=== PATIENT | female | born 1965 | race Caucasian/White ===

== ENCOUNTER 2016-12-29 16:15 | Inpatient (IN) | payer OTHER ==
--- NOTE | ~2016-12-29 | HP ---
Unit #: [id number] #: [id number] Patient: ORVILLE SOLANO [id number] [facility]. [place], [place] [address] [id number] I MR#: [id number] NAME: ORVILLE SOLANO ROOM: 85199 Age: 51 Sex: F Admission Date: 12/29/2016 : 1965 Attending Physician: Oksana Tylre M.D. Primary Care Physician: Artemio Richardson M.D. HISTORY AND PHYSICAL CHIEF COMPLAINT Shortness of breath. HISTORY OF PRESENT ILLNESS The patient is a 51-year-old female with a past medical history of COPD with continued tobacco abuse, chronic respiratory failure, diabetes, coronary artery disease, GERD, anxiety, chronic pain, Von Willebrand disease, who presented to the emergency department for evaluation of the above. The patient states that she has not been feeling well since December 26, 2016. She states that she has had increasing shortness of breath and an occasionally productive cough. She states that her chest is "sore" in association with costs. She denies any fever or chills. Her appetite has been good. No vomiting or diarrhea. No urinary symptoms. She was started on Bactrim and prednisone by her primary care physician. She has been taking those as prescribed and is not feeling any better. She presented to the emergency department today for evaluation. In the emergency department, initial pulse was 105, respirations 36, oxygen saturation was 94% on 2 L. Chest x-ray shows infiltrate in the left lower lobe. She was given Rocephin and azithromycin in the emergency department. She was being admitted to [facility] for evaluation and further treatment. PAST MEDICAL HISTORY 1. Admission to [facility] in June 2016. She underwent cardiac stent placement (no records). 2. Admission to [facility] March 02 through the 2015 for acute on chronic respiratory failure and COPD exacerbation. 3. COPD, severe. The patient used to see Dr. Obrien as an outpatient but is not seeing anybody currently. 4. Chronic respiratory failure, on 2 L of oxygen per nasal cannula. 5. Diabetes. 6. Coronary artery disease, status post cardiac stent placement, followed by Dr. Franco. 7. Chronic neck and back pain, not in pain management. 8. GERD. 9. Anxiety. 10. Von Willebrand disease. PAST SURGICAL HISTORY 1. Cardiac catheterization. Unit #: [id number] #: [id number] Patient: ORVILLE SOLANO 2. Cardiac stent placement. 3. EGD and colonoscopy. 4. Cholecystectomy. 5. Bilateral tubal ligation. 6. . SOCIAL HISTORY The patient lives with her boyfriend. She continues to smoke a pack of cigarettes daily. She denies alcohol use. She walks with assistance. Her code status is a Full Code. FAMILY HISTORY Notable for COPD. ALLERGIES Guaifenesin. MEDICATIONS Home medications include: 1. Bactrim. 2. Prednisone. 3. Plavix. 4. Effient. 5. Multivitamin. 6. Ranitidine. 7. Theophylline. 8. Meloxicam. 9. [place]-3. 10. Aspirin. 11. Pantoprazole. 12. Montelukast. 13. Cyclobenzaprine. 14. Trazodone. 15. Sea Soft Nasal Mist. 16. Humalog. 17. Levemir. 18. Duo-Nebs. 19. Nitroglycerin. 20. Stool softener. 21. Tylenol. Home medications will need to be reviewed and verified. REVIEW OF SYSTEMS A complete review of systems is negative except as indicated in the HPI. The patient states that her blood sugars have been in the 300 to 400 range. She denies any change in her weight. She does have easy bruising that is not a new problem. DIAGNOSTIC STUDIES CARDIOVASCULAR: EKG shows normal sinus rhythm with rate of 99 beats/minute. IMAGING: Chest x-ray shows left lower lobe infiltrate. LABORATORY: D-dimer is 213. INR is 0.9. Complete blood count notable for white blood cell count of 11.6, MCV is Unit #: [id number] #: [id number] Patient: ORVILLE SOLANO 75.5. Troponin is less than 0.05. BNP is 25. Comprehensive metabolic panel is notable for chloride of 97, glucose is 424, BUN and creatinine 27 and 1 respectively, alkaline phosphatase is 99. PHYSICAL EXAMINATION VITAL SIGNS: Temperature is 97.8, pulse 105, respirations 36, blood pressure 113/59. Oxygen saturation is 94% on 2 L. GENERAL: The patient is a female who is awake and alert, in no acute distress. HEENT: The head is atraumatic. Mucous membranes are moist. NECK: Supple. Trachea is midline. CARDIOVASCULAR: Regular rate and rhythm. LUNGS: Demonstrate inspiratory and expiratory wheezes. Breathing is not labored with conversation. ABDOMEN: Soft, nontender, with bowel sounds present in all four quadrants. EXTREMITIES: Nontender with no pedal edema. NEURO: The patient is awake and alert. She follows commands. PSYCH: Mood and affect are normal. The patient is cooperative. SKIN: Demonstrates scattered contusions in varying levels of healing. ASSESSMENT The patient is a 51-year-old female with: 1. Pneumonia, community-acquired that has failed outpatient treatment with Bactrim. 2. Chronic obstructive pulmonary disease exacerbation. 3. Chronic respiratory failure, on 2 L of oxygen per nasal cannula continuous. 4. Continued tobacco abuse. 5. Uncontrolled diabetes with glucose of 424 on comprehensive metabolic panel. 6. Coronary artery disease, status post cardiac stent placement, followed by Dr. Franco. 7. Gastroesophageal reflux disease. 8. Anxiety. 9. Chronic pain. 10. Von Willebrand disease. PLAN 1. Admit to intermediate level. 2. Healthy heart consistent carb diet. 3. Blood cultures x2. 4. Sputum culture and sensitivity. 5. Procalcitonin level. 6. Supplemental oxygen 2 to 4 L to maintain saturations greater than 92%. 7. Rocephin and azithromycin for community-acquired pneumonia pending further workup. 8. Duo-Nebs q.4 hours while awake and q.2 hours p.r.n. 9. Solu-Medrol 80 mg IV q.12 hours. 10. Mucinex 600 mg p.o. b.i.d. 11. Check theophylline level. 12. Sepsis protocol with stat lactic acid and repeat. 13. Serial cardiac enzymes. 14. Hemoglobin A1c. 15. Low dose sliding scale insulin with Accu-Cheks. 16. Protonix for GI prophylaxis since the patient will be on Solu-Medrol. Unit #: [id number] #: [id number] Patient: ORVILLE SOLANO 17. SCDs for DVT prophylaxis. 18. Repeat labs in the morning. 19. Additional workup and consultants based on above. 20. Regarding code status, the patient is a Full Code. Dictated by Oksana Tylre M.D. FRANNIE/teo TD: 12/30/2016 10:42 JOB #: [id number] HISTORY AND PHYSICAL Page 1 of 1 X Oksana Tyler MD HISTORY AND PHYSICAL
--- NOTE | ~2016-12-29 | DS ---
Unit #: [id number] #: [id number] Patient: ORVILLE DUNAWAY [id number] [address] [id number] I MR#: [id number] NAME: ORVILLE DUNAWAY ROOM: 217 Age: 51 Sex: F Admission Date: 12/29/2016 : 1965 Discharge Date: 01/01/2017 Attending Physician: Mana Frias M.D. Primary Care Physician: Artemio Richardson M.D. DISCHARGE SUMMARY PRINCIPAL DIAGNOSES 1. Left lower lobe community-acquired pneumonia. 2. Acute exacerbation of chronic obstructive pulmonary disease. 3. Chronic hypoxic respiratory failure maintained on two liters of oxygen per nasal cannula continuously. 4. Diabetes mellitus type 2, insulin requiring and uncontrolled with hemoglobin A1C of 11.6. 5. Persistent tobacco abuse. 6. Coronary artery disease. 7. Chronic cervical lumbar pain. 8. Gastroesophageal reflux disease. 9. Von Willebrand disease. 10. Anxiety. 11. Restless leg syndrome. 12. Microcytic anemia with pending iron levels. CONSULTANTS None. PROCEDURE Chest x-ray, on December 29, 2016, with alveolar opacities suggestive of atelectatic change in the left lower lung, questionable infiltrate. CLINICAL HISTORY AND HOSPITAL COURSE Ms. Dunaway is a 51-year-old female with a history of COPD with associated respiratory failure, who presents to the emergency department for shortness of breath. Please refer to H and P for further details. Chest x-ray revealed questionable left lower lobe infiltrate. Upon presentation, the patient's WBC count was elevated at 11.6. She was also found to have a MCV of 75. The patient was subsequently admitted. The patient was placed on empiric broad-spectrum antibiotics in addition to IV steroids and nebulizer treatments. The leukocytosis quickly resolved and, clinically, the patient appeared to be improving. She remained afebrile. She has been transitioned to oral antibiotics. The patient's associated COPD exacerbation also began to improve and she has been now tapered to oral steroids. The patient was previously seen by Pulmonology as an outpatient but this had been several years. She states her symptoms were always better controlled on steroid therapy. I am going to continue her on theophylline nebulizer treatments and add steroids. She will need addition of maintenance inhalers as an outpatient as well and we did discuss tobacco cessation. The patient did have some significant hyperglycemia during hospitalization with sugars as high as Unit #: [id number] #: [id number] Patient: ORVILLE DUNAWAY 400 due to IV steroids. However, hemoglobin A1C is significantly elevated at 11.6. I did discuss dietary changes with the patient and I am going to increase her dose of insulin in addition to scheduling her Humalog. This will need close outpatient evaluation. The patient will be discharged home today with close followup. DISCHARGE CONDITION Stable. DISCHARGE STATUS Discharge to home. DISCHARGE MEDICATIONS 1. DuoNeb nebulizer treatments 3 mL every four hours. 2. Prednisone 10 mg four tablets a day for three days, then three tablets for three days, then two tablets for three days and then one tablet p.o. daily with 15 days given. 3. Tylenol 500 mg p.o. q.6 hours p.r.n. for pain. 4. Trazodone 50 mg at bedtime. 5. [place]-3 1,000 mg two tablets b.i.d. 6. Mirapex 0.5 mg at bedtime. 7. Docusate 250 mg at bedtime p.r.n. for constipation. 8. Omnicef 300 mg p.o. b.i.d. for another three days. 9. Humalog 7 units subcu t.i.d. with meals scheduled with associated sliding scale. 10. Levemir increased to 30 units subcutaneously at bedtime. 11. Ranitidine 150 mg b.i.d. 12. Singulair 10 mg daily. 13. Daily multivitamin. 14. Aspirin 81 mg daily. 15. Mobic 15 mg p.o. daily. 16. Plavix 75 mg daily. 17. Pantoprazole 40 mg daily. 18. Theophylline 300 mg q.12 hours. 19. Flexeril 10 mg at bedtime. 20. Nitroglycerin 0.4 mg sublingual q.5 minutes p.r.n. for chest pain. I will note the patient is also reportedly on Effient in addition to Plavix. I am uncertain if this is accurate and I have instructed her to contact her workers compensation analyst for clarification. DISCHARGE INSTRUCTIONS 1. The patient was instructed to follow a Heart Healthy constant carb diet. 2. She can increase her activity as tolerated. 3. To wear oxygen at two liters per nasal cannula at all time. 4. Continue Accu-Cheks a.c. and h.s. at home. FOLLOWUP The patient will follow up with Dr. Richardson in two weeks. I have discussed outpatient evaluation with Pulmonology per Dr. Richardson and perhaps again addition of something like Symbicort or Advair and patient may require long-term prednisone therapy. Also, need intensive monitoring of sugars given prednisone as well. Time spent on discharge-32 minutes. Unit #: [id number] #: [id number] Patient: ORVILLE DUNAWAY Dictated by... Francesca Francis/kuldip TD: 01/01/2017 09:52 JOB #: [id number] DISCHARGE SUMMARY Page 1 of 1 X Mana Frias MD X DISCHARGE SUMMARY
--- NOTE | ~2016-12-29 | A ---
[facility] Nutrition Therapy DATE: 12/31/16 Patient: ORVILLE SOLANO Physician: JOHN Address: [address] [place] [address] Room/Bed: [address] [place] [address], Zip: [place] [address] Admit Date: 12/29/16 Date of : [birth year] Height: 5 2 Weight: 131 59.6 NUTRITIONAL ASSESSMENT: REASON: Consult RE: diabetic diet education 51 yo female admitted for SOA Anthropometrics: Ht: 5'2" Wt: 59.5 kg (131#) BMI: 24.0 Assessment: RD legal internship provided written and verbal diabetic diet education. Pt reported a weight loss of ~17# of unknown time frame, stating UBW ~148#. Pt reported eating 3 meals/d + snacks the majority of the time but sometimes skips meals d/t poor appetite. Pt stated drinking Glucerna shakes at home on occassion. RD legal internship encouraged small frequent meals and importance of adequate calories/protein. RD legal internship discussed portion sizes of carbohydrate foods and alternative cooking methods of foods. Pt verbalized undestanding, expect moderate compliance with diet when d/c'd. Pt had no diet questions at this time. Recommendations: 1. Encourage compliance with consistent carb diet. 2. Reconsult RD if further diet education is needed/requested. RD will f/u per protocol. Respectfully, Emilie Napoles, Bankruptcy Assistant Yamileth Mendez MS, RD, LD [facility] cc: client file
--- NOTE | ~2016-12-29 | CR72 ---
[facility] A Service of [facility] RADIOLOGY TEXT RESULTS PATIENT: ORVILLE SOLANO LOCATION: C5 [address] : [birth year] UNIT #: [id number] AGE: [address]: Mana Frias MD SEX: F ORDER DR: [id number] [facility] [address] [facility]. [place], [place] [address] [id number] I MR#: [id number] Acc #: [id number] NAME: ORVILLE SOLANO : 1965 SEX: F STUDY DATE/TIME: 12/29/2016 15:23 UNIT: [facility] ROOM: 34549 STUDY DESCRIPTION: CR Chest Single View Portable Attending Physician: Oksana Tyler M.D. Ordering Physician: Cheryl Carvajal M.D. Primary Care Physician: Artemio Richardson M.D. MEDICAL IMAGING REPORT This report is preliminary unless electronic signature is present EXAM Single view of the chest dated 12/29/2016 COMPARISON Single view of the chest dated 08/22/2016 HISTORY Shortness of air since Saturday. Patient has had 2 heart stents. FINDINGS Single view of the chest was obtained. No obvious acute cardiopulmonary disease is seen. Minimal atelectatic changes in the left lung base cannot be excluded. No pleural effusion, pneumothorax is seen. Heart, mediastinum and the rene are stable. IMPRESSION 1. Minimal alveolar opacities suggestive of atelectatic changes/minimal infiltrate is suspected in the left lower lung zone in 2 spots, new. 2. No other significant abnormality. Dictated by... Venessa Pearl M.D. THIS IS AN ELECTRONICALLY VERIFIED REPORT Venessa Pearl M.D. at 12/31/2016 1:40 PM CPR/to TD: 12/30/2016 10:11 JOB #: [id number] [facility] A Service [facility] RADIOLOGY TEXT RESULTS PATIENT: ORVILLE SOLANO LOCATION: [facility] 550 : [birth year] UNIT #: [id number] AGE: [address]: Mana Frias MD SEX: F ORDER DR: MEDICAL IMAGING REPORT Page 1 of 1 COPY
--- NOTE | ~2016-12-29 | EKG ---
PATIENT: ORVILLE SOLANO UNIT #: [id number] Ventricular Rate: 99 BPM Atrial Rate: 99 BPM P-R Interval: 116 ms QRS Duration: 76 ms Q-T Interval: 332 ms QTC Calculation(Bezet): 426 ms P [place]: 90 degrees Calculated R [place]: 76 degrees Calculated T [place]: 66 degrees Diagnosis Line: Normal sinus rhythm Diagnosis Line: Normal ECG Diagnosis Line: When compared with ECG of 19-AUG-2016 01:45, Diagnosis Line: No significant change was found Diagnosis Line: Confirmed by CATHY NICHOLE MD ([id number]) on Diagnosis Line: 01/02/2017 5:39:50 AM INTERPRETING : MADY
[2016-12-29 15:53] LABS: BASOPHIL% 0.3 % (0-2.5); EOSINOPHIL% 0.1 % (0.0-7.0); HEMATOCRIT 39.4 % (35.0-45.0); HEMOGLOBIN 12.3 gm/dL (12.0-16.0); LYMPHOCYTE# 0.5 X10e3 (1.0-3.5); LYMPHOCYTE% 4.3 % (17.0-45.0); MEAN CELL VOLUME 75.5 FL (83-96); MEAN CORPUSCULAR HEMOGLOBIN 23.5 PG (28-34); MEAN CORPUSCULAR HGB CONC 31.1 g/dL (30-36); MEAN PLATELET VOLUME 10.1 FL (6.5-11.5); MONOCYTE# 0.2 X10e3 (0-1.0); MONOCYTE% 1.5 % (3.0-12.0); NEUTROPHIL# 10.9 X10e3 (1.5-7.1); NEUTROPHIL% 93.8 % (40-75); PLATELET COUNT 173 X10e3 (140-420); RED BLOOD COUNT 5.22 X10e (3.90-5.30); RED CELL DISTRIBUTION WIDTH 16.8 % (11.0-15.5); WHITE BLOOD COUNT 11.6 X10e3 (4.0-10.5)
[2016-12-29 15:56] LABS: POC - CKMB 3.6 ng/mL (0.0-7.9); POC - TROPONIN <0.05 ng/mL (<=0.05)
[2016-12-29 15:56] LABS: DIFF IND NO
[2016-12-29 16:06] LABS: INR 0.9; PROTHROMBIN TIME (PATIENT) 9.2 SECONDS (9.6-11.5)
[~2016-12-29 16:15] MED LIST: ACETAMINOPHEN PO; ACETAMINOPHEN650 M3 PO; ALBUTEROL MININEB NEB; ALBUTEROL1.25 MG/3 IH; ALBUTEROL17 GM INH; ALPRAZOLAM PO; AMLODIPINE BESYL5 MG PO; ANEXSIA 7.5/3251 TA1 PO; ATARAX PO; ATROVENT HFA12.9 G1 IH; ATROVENT HFA12.9 G1 INH; AUGMENTIN875 M1 PO; AZITHROMYCIN500 MG PO; BENTYL20 MG PO; CLINDAMYCIN HC300 MG PO; COMBIVENT MININEB INH; DALIRESP500 MCG PO; DESYREL50 MG PO; DEXAMETHASONE1 MG PO; DEXAMETHASONE2 MG PO; DIABETA5 M1 PO; DIFLUCAN PO; DOXYCYCLINE MO100 MG PO; FEROSUL325 ( 651 PO; FERRO-TIME325 MG PO; FERROUS SULFATE PO; FISH OIL500 MG PO; FLEXERIL10 MG PO; FOLIC ACID1 MG PO; GLUCOPHAGE500 M1 PO; GLUCOPHAGE500 MG PO; GLYBURIDE PO; HUMALOG100 U/M1; HUMALOG100 U/ML; HYDROCODON-ACE1 EAC1 PO; HYDROCODON-ACE1 EAC9 PO; HYDROCODONE-APA1 T30 PO; HYDROCODONE-APA1 T54 PO; HYDROXYZINE HCL25 M1 PO; HYDROXYZINE PAM25 M1 PO; HYDROXYZINE PAM25 MG PO; IBUPROFEN400 MG PO; JANUVIA PO; JANUVIA50 MG PO; LEVAQUIN750 M1 PO; LEVAQUIN750 MG PO; LISINOPRIL10 MG PO; LORTAB 7.5-3251 EACH; METFORMIN HCL500 M1 PO; MICRONASE5 M1 PO; MICRONASE5 M2 PO; MIRAPEX PO; MIRAPEX0.25 MG PO; MONTELUKAST SOD10 MG PO; NICOTINE P1 PATCH .1 TD; NICOTINE TRANSD21 MG EXT; NORVASC PO; NOVOLOG100 U/M2 SQ; NOVOLOG100 U/ML SUBQ; OMEGA-31000 M1 PO; OMEPRAZOLE20 M1 PO; OMNICEF300 M1 PO; OXYGEN; PANTOPRAZOLE SO40 MG PO; PHENERGAN25 MG PO; PRAMIPEXOLE DI0.5 MG PO; PRAVACHOL20 MG PO; PREDNISONE PO; PREDNISONE10 MG PO; PREDNISONE10 MG/DOSE PO; PREDNISONE50 MG PO; PRILOSEC PO; PRILOSEC20 M1 PO; PROTONIX PO; RANITIDINE HCL150 M1 PO; ROBAXIN500 MG PO; SINGULAIR PO; SPIRIVA18 MCG INH; SYMBICORT 160/4.6 G1 IH; SYMBICORT 16010.2 GM IH; SYMBICORT INH; THEO-DUR300 MG PO; THEOPHYLLIN PO; THIAMINE HCL100 MG PO; VIBRAMYCIN100 M1 PO; VISTARIL PO; WOMEN'S DAILY1 EACH PO; XANAX0.5 MG PO; ZANTAC150 M1 PO; ZANTAC150 MG PO; ZITHROMAX500 MG PO; ZOVIRAX15 GM TP
[2016-12-29 16:24] LABS: ALBUMIN SERUM 3.5 g/dL (3.5-5.0); ALKALINE PHOSPHATASE 99 U/L (32-92); ALT (SGPT) 19 U/L (10-40); AST (SGOT) 19 U/L (10-42); BILIRUBIN,TOTAL 0.2 mg/dL (0.2-2.0); BLOOD UREA NITROGEN 27 mg/dL (9-23); CALCIUM SERUM 9.1 mg/dL (8.4-10.2); CARBON DIOXIDE 29 mmol/L (22-31); CHLORIDE 97 mmol/L (100-111); GLOM FILT RATE Estimated 66.1 mL/min (>60); GLUCOSE FASTING 424 mg/dL (70-110); POTASSIUM 4.7 mmol/L (3.5-5.1); PROTEIN TOTAL SERUM 6.6 g/dL (6.0-8.3); SODIUM 136 mmol/L (135-145)
[2016-12-29 16:28] LABS: BILIRUBIN, DIRECT <0.1 mg/dL (0.0-0.2); BILIRUBIN,INDIRECT 0.1 mg/dL (0.0-0.9)
[2016-12-29 17:32] LABS: POC - CKMB 2.9 ng/mL (0.0-7.9); POC - TROPONIN <0.05 ng/mL (<=0.05)
[2016-12-29 19:51] LABS: THEOPHYLLINE 3 ug/dL (10-20)
[2016-12-29] MEDS ORDERED: PREDNISONE10 MG PO (20:01)
[2016-12-29] MEDS ORDERED: CLOPIDOGREL75 MG PO (20:02)
[2016-12-29] MEDS ORDERED: EFFIENT10 MG PO (20:02)
[2016-12-29] MEDS ORDERED: MULTI VITAMIN1 EACH PO (20:03)
[2016-12-29] MEDS ORDERED: THEO-DUR200 MG PO (20:03)
[2016-12-29] MEDS ORDERED: ACID CONTROL150 MG PO (20:03)
[2016-12-29] MEDS ORDERED: OMEGA-31000 M1 PO (20:04)
[2016-12-29] MEDS ORDERED: MELOXICAM15 MG PO (20:04)
[2016-12-29] MEDS ORDERED: ASPIRIN81 M2 PO (20:04)
[2016-12-29] MEDS ORDERED: MONTELUKAST SOD10 MG PO (20:05)
[2016-12-29] MEDS ORDERED: PANTOPRAZOLE SO40 MG PO (20:05)
[2016-12-29] MEDS ORDERED: DESYREL50 MG PO (20:08)
[2016-12-29] MEDS ORDERED: FLEXERIL10 MG PO (20:08)
[2016-12-29] MEDS ORDERED: PRAMIPEXOLE DI0.5 MG PO (20:09)
[2016-12-29] MEDS ORDERED: HUMALOG100 UNIT/1 SUBQ (20:09)
[2016-12-29] MEDS ORDERED: MIST (20:09)
[2016-12-29] MEDS ORDERED: LEVEMIR100 UNITS/ SUBQ (20:10)
[2016-12-29] MEDS ORDERED: NITROGLYGERIN0.4 MG SL (20:11)
[2016-12-29] MEDS ORDERED: IPRAT-ALBUT 0.5-3 ML INH (20:11)
[2016-12-29] MEDS ORDERED: STOOL SOFTENER250 MG PO (20:12)
[2016-12-29] MEDS ORDERED: ACETAMINOPHEN PO (20:13)
[2016-12-29 20:17] LABS: PROCALCITONIN <0.05 NG/ML
[2016-12-29 20:31] LABS: CK TOTAL 45 IU/L (26-140)
[2016-12-30 05:39] LABS: BASOPHIL% 0.2 % (0-2.5); HEMATOCRIT 37.4 % (35.0-45.0); HEMOGLOBIN 11.8 gm/dL (12.0-16.0); LYMPHOCYTE# 1.4 X10e3 (1.0-3.5); LYMPHOCYTE% 12.1 % (17.0-45.0); MEAN CELL VOLUME 74.7 FL (83-96); MEAN CORPUSCULAR HEMOGLOBIN 23.6 PG (28-34); MEAN CORPUSCULAR HGB CONC 31.6 g/dL (30-36); MEAN PLATELET VOLUME 9.8 FL (6.5-11.5); MONOCYTE# 0.7 X10e3 (0-1.0); NEUTROPHIL# 9.5 X10e3 (1.5-7.1); NEUTROPHIL% 81.7 % (40-75); PLATELET COUNT 171 X10e3 (140-420); RED CELL DISTRIBUTION WIDTH 16.4 % (11.0-15.5); WHITE BLOOD COUNT 11.7 X10e3 (4.0-10.5)
[2016-12-30 05:50] LABS: DIFF IND NO
[2016-12-30 06:10] LABS: ALBUMIN SERUM 3.3 g/dL (3.5-5.0); BILIRUBIN,TOTAL 0.2 mg/dL (0.2-2.0); BUN/CREATININE RATIO 32.85; CALCIUM SERUM 9.5 mg/dL (8.4-10.2); CREATININE SERUM 0.7 mg/dL (0.6-1.4); GLOM FILT RATE Estimated 101.7 mL/min (>60); POTASSIUM 4.5 mmol/L (3.5-5.1); PROTEIN TOTAL SERUM 6.4 g/dL (6.0-8.3)
[2016-12-30 06:11] LABS: CK TOTAL 37 IU/L (26-140)
[2016-12-31 05:20] LABS: BASOPHIL% 0.1 % (0-2.5); HEMATOCRIT 39.7 % (35.0-45.0); HEMOGLOBIN 12.8 gm/dL (12.0-16.0); LYMPHOCYTE# 0.8 X10e3 (1.0-3.5); LYMPHOCYTE% 7.5 % (17.0-45.0); MEAN CELL VOLUME 74.5 FL (83-96); MEAN CORPUSCULAR HEMOGLOBIN 24.1 PG (28-34); MEAN CORPUSCULAR HGB CONC 32.3 g/dL (30-36); MEAN PLATELET VOLUME 9.8 FL (6.5-11.5); MONOCYTE# 0.1 X10e3 (0-1.0); MONOCYTE% 1.4 % (3.0-12.0); NEUTROPHIL# 9.5 X10e3 (1.5-7.1); PLATELET COUNT 159 X10e3 (140-420); RED BLOOD COUNT 5.34 X10e (3.90-5.30); RED CELL DISTRIBUTION WIDTH 16.8 % (11.0-15.5); WHITE BLOOD COUNT 10.5 X10e3 (4.0-10.5)
[2016-12-31 05:25] LABS: DIFF IND NO
[2016-12-31 06:08] LABS: BUN/CREATININE RATIO 44.28; CALCIUM SERUM 9.4 mg/dL (8.4-10.2); CREATININE SERUM 0.7 mg/dL (0.6-1.4); GLOM FILT RATE Estimated 101.7 mL/min (>60); POTASSIUM 5.1 mmol/L (3.5-5.1)
[2017-01-01] MEDS ORDERED: OMNICEF300 M1 PO (11:02)
== END 2017-01-01 13:30 | disposition home or self-care (01) | DRG 190 ==
LOC: CED 16:15 → CEDOF 18:45 → C5B 12-30 18:27 → C2A 12-31 18:24
PROVIDERS: Emergency Medicine; Family Medicine
DX: J44.1 Chronic obstructive pulmonary disease with (acute) exacerbation (principal); J18.9 Pneumonia, unspecified organism; J96.11 Chronic respiratory failure with hypoxia; D68.0 Von Willebrand disease; E11.65 Type 2 diabetes mellitus with hyperglycemia; F17.210 Nicotine dependence, cigarettes, uncomplicated; D50.9 Iron deficiency anemia, unspecified; I25.10 Atherosclerotic heart disease of native coronary artery without angina pectoris; K21.9 Gastro-esophageal reflux disease without esophagitis; F41.9 Anxiety disorder, unspecified; G89.29 Other chronic pain; Z99.81 Dependence on supplemental oxygen; Z90.49 Acquired absence of other specified parts of digestive tract; Z98.51 Tubal ligation status; Z79.82 Long term (current) use of aspirin; Z79.4 Long term (current) use of insulin; G25.81 Restless legs syndrome
CPT/HCPCS: 71010; 80048; 80053; 80076; 80198; 82308; 82550; 82553; 82947; 83036; 83605; 83880; 84484; 85025; 85379; 85610; 87040; 93005; 94640; 94760; 99285; J0456; J0696; J1815; J2920; J2930

== ENCOUNTER 2017-03-28 08:35 | Observation (INO) | payer OTHER ==
[~2017-03-28] VITALS: Ht 154.9 cm; Wt 63.5 kg
--- NOTE | ~2017-03-28 | CR72 ---
[facility] A Service of [facility] RADIOLOGY TEXT RESULTS PATIENT: ORVILLE SOLANO LOCATION: [facility] : [birth year] UNIT #: [id number] AGE: [address]: Leona Acevedo MD SEX: F ORDER DR: [id number] [facility] [address] [facility]. [place], [place] [address] [id number] MR#: [id number] Acc #: [id number] NAME: ORVILLE SOLANO : 1965 SEX: F STUDY DATE/TIME: 03/28/2017 9:30 UNIT: [facility] ROOM: STUDY DESCRIPTION: CR Chest Single View Portable Attending Physician: Leona Acevedo M.D. Ordering Physician: Ed Doctor [id number] [facility] Primary Care Physician: Artemio Richardson M.D. MEDICAL IMAGING REPORT This report is preliminary unless electronic signature is present EXAM Portable chest INDICATIONS Shortness of breath and cough today. COMPARISON 02/21/2017 FINDINGS There is no airspace consolidation. Stable mild interstitial prominence. Heart size stable. IMPRESSION No acute findings. Stable mild interstitial prominence. Dictated by... Shar Weber M.D. THIS IS AN ELECTRONICALLY VERIFIED REPORT Shar Weber M.D. at 03/28/2017 12:25 PM VTIALIY/jennifer TD: 03/28/2017 10:45 JOB #: [id number] MEDICAL IMAGING REPORT Page 1 of 1 COPY
--- NOTE | ~2017-03-28 | HP ---
Unit #: [id number] #: [id number] Patient: ORVILLE SOLANO [id number] [facility]. [place], [place] [address] [id number] I MR#: [id number] NAME: ORVILLE SOLANO ROOM: [address]31 Age: 52 Sex: F Admission Date: 03/28/2017 : 1965 Attending Physician: Marc Kimball M.D. Primary Care Physician: Artemio Richardson M.D. HISTORY AND PHYSICAL CHIEF COMPLAINT Shortness of breath. HISTORY OF PRESENT ILLNESS The patient is a 52-year-old female who presents to [facility] emergency department with a complaint of shortness of breath. She states that it started yesterday. She states it has been progressive and worse with exertion. It is associated with productive cough but no fever. It is better with oxygen and rest. PAST MEDICAL HISTORY Chronic respiratory failure and COPD. The patient is on two liters of oxygen at home. Diabetes, coronary artery disease, chronic neck and back pain, GERD, anxiety, von Willebrand disease. PAST SURGICAL HISTORY Cardiac cath, cardiac stent, EGD and colonoscopy, cholecystectomy, bilateral tubal ligation, . SOCIAL HISTORY The patient states she does smoke a pack a day, denies alcohol and illicit drug use. FAMILY HISTORY COPD. ALLERGIES Guaifenesin. HOME MEDICATIONS 1. Tylenol 500 mg p.o. daily as needed. 2. Albuterol/ipratropium per nebulizer as needed for shortness of breath. 3. Nitroglycerin 0.4 mg sublingual p.r.n. chest pain q.5 minutes p.r.n. Three dose max. 4. Stool softener 250 mg p.o. q.h.s. p.r.n. 5. Trazodone 50 mg p.o. q.h.s. 6. Pramipexole 0.5 mg p.o. q.h.s. 7. Humalog sliding scale. 8. Levemir 16 units subcu at bedtime. 9. Mobic 15 mg p.o. daily. 10. Fish oil daily. 11. Aspirin 81 mg daily. 12. Protonix 40 mg daily. Unit #: [id number] #: [id number] Patient: ORVILLE SOLANO 13. Singulair 10 mg daily. 14. Flexeril 10 mg p.o. q.h.s. 15. Zantac 300 mg daily. 16. [place] 600 mg daily. 17. Plavix 75 mg daily. 18. Multivitamin daily. REVIEW OF SYSTEMS A 10-point review of systems obtained, negative except as per HPI with the addition of chronic back pain. PHYSICAL EXAMINATION GENERAL APPEARANCE: A 52-year-old female in no acute distress who appears stated age. VITAL SIGNS: Temperature 97.5. Pulse 101. Blood pressure 128/57. HEENT: Pupils equally round. Extraocular movements intact. Mucous membranes dry. NECK: Supple. No JVD, lymphadenopathy. CARDIAC: Regular rate and rhythm. No murmurs, gallops or rubs. LUNGS: Demonstrate coarse upper airway sounds bilaterally but no wheezes, decreased but equal air entry bilaterally. ABDOMEN: Nontender, nondistended. Positive bowel sounds. EXTREMITIES: No clubbing, cyanosis or edema. They are warm and dry. PSYCHIATRIC: Alert and oriented x3. Affect is appropriate. NEUROLOGIC: Cranial nerves II-XII intact grossly. The patient moves all extremities equally and with purpose. SKIN: No rash, bruises or ulcer. MUSCULOSKELETAL: No muscle or joint pain. No muscle or joint swelling. DIAGNOSTIC STUDIES LABORATORY: Glucose 371. Platelets 110, otherwise CBC is normal. IMAGING: Chest x-ray shows no acute findings. ASSESSMENT AND PLAN 1. Acute on chronic hypoxic respiratory failure. I ordered an ABG and on her home dose of oxygen she is currently with a pO2 of 75. I have started the patient on treatment for COPD exacerbation. 2. COPD exacerbation. The patient has been started on DuoNeb and IV steroids. 3. Coronary artery disease. Continue home meds. 4. Hypertension. Continue home meds. 5. Diabetes type 2. I have increased the patient's Levemir and put her on sliding scale insulin. Given her steroid use, she will likely require monitoring of blood sugars prior to a significant increase of her insulin. 6. Prophylaxis. The patient has been started on Lovenox. 1. Dictated by Marc Kimball M.D. CARIDAD/kuldip TD: 03/28/2017 14:06 JOB #: [id number] Unit #: [id number] #: [id number] Patient: ORVILLE SOLANO HISTORY AND PHYSICAL Page 1 of 1 X Marc Kimball MD HISTORY AND PHYSICAL
--- NOTE | ~2017-03-28 | EKG ---
PATIENT: ORVILLE SOLANO UNIT #: [id number] Ventricular Rate: 108 BPM Atrial Rate: 108 BPM P-R Interval: 122 ms QRS Duration: 74 ms Q-T Interval: 336 ms QTC Calculation(Bezet): 450 ms P [place]: 81 degrees Calculated R [place]: 41 degrees Calculated T [place]: 36 degrees Diagnosis Line: Sinus tachycardia Diagnosis Line: Otherwise normal ECG Diagnosis Line: When compared with ECG of 29-DEC-2016 15:26, Diagnosis Line: No significant change was found Diagnosis Line: Confirmed by ALL NOVAK MD ([id number]) on Diagnosis Line: 03/29/2017 9:03:05 AM INTERPRETING MD: KISHORE GILMAN
--- NOTE | ~2017-03-28 | DS ---
Unit #: [id number] #: [id number] Patient: ORVILLE DUNAWAY [id number] [address] [address] [id number] I MR#: [id number] NAME: ORVILLE DUNAWAY. ROOM: 231 Age: 52 Sex: F Admission Date: 03/28/2017 : 1965 Discharge Date: 03/30/2017 Attending Physician: Mana Frias M.D. Primary Care Physician: Artemio Richardson M.D. DISCHARGE SUMMARY PRINCIPAL DIAGNOSES 1. Acute exacerbation of chronic obstructive pulmonary disease. 2. Diabetes mellitus type 2, insulin requiring and uncontrolled, with significant steroid-induced hyperglycemia. 3. Steroid-induced leukocytosis. 4. Chronic hypoxic, hypercapnic respiratory failure maintained on two liters of oxygen per nasal cannula continuously. 5. Anxiety. 6. Von Willebrand disease. 7. Coronary artery disease. 8. Tobaccoism. 9. Musculoskeletal abdominal pain. 10. Restless leg syndrome. CONSULTANTS None. PROCEDURE Chest x-ray on March 28, 2017, without any acute findings. Interstitial prominence and hyperinflation noted. CLINICAL HISTORY AND HOSPITAL COURSE Ms. Dunaway is a 52-year-old female who presented to the emergency department with shortness of breath. In the emergency department, she was found to be significantly wheezy. She was subsequently admitted for COPD exacerbation. The patient was placed on IV steroids, in addition to empiric doxycycline. With treatment, she feels much better. She is still wheezy today primarily due to the fact that she lost her IV site and has not received any steroids. However, she states she has walked down to the gift shop and did not have any dyspnea beyond her baseline. Her oxygen requirements have also remained at baseline. I am going to treat her with a dose of Depo-Medrol this morning and continue an oral tapering dose of steroids as an outpatient beginning tomorrow. Patient had significant hyperglycemia while on steroids with blood sugars running in the 500-600 range. At baseline, her diabetes is very poorly controlled. Last hemoglobin A1c per records in December was 11.6. I believe she is likely noncompliant with diet as well. I am going to increase her insulin doses at home. This should remain permanent, and she can follow up with her primary care provider for improved sugar control. Patient was also complaining of some right flank pain and some suprapubic Unit #: [id number] #: [id number] Patient: ORVILLE DUNAWAY pain. Urinalysis was unremarkable. The pain was primarily there with movement, and I think it is muscular in origin from coughing. Will treated with tramadol just for a very short period. DISCHARGE CONDITION Stable. DISCHARGE STATUS Discharge to home. DISCHARGE MEDICATIONS 1. DuoNeb nebulizer solution 3 mL every 6 hours p.r.n. for shortness of breath. 2. Prednisone 10 mg tablets 4 tablets for 3 days, 3 tablets for 3 days, 2 tablets for 3 days, 1 tablet for 3 days, then discontinue. This is to begin on March 31, 2017. 3. Tramadol 50 mg 1 p.o. q.8 hours p.r.n. for pain, #15. 4. Doxycycline 100 mg p.o. b.i.d. for 5 days. 5. Tylenol 500 mg p.o. daily p.r.n. for pain. 6. Trazodone 50 mg at bedtime. 7. Mirapex 0.5 mg at bedtime. 8. Docusate 200 mg at bedtime p.r.n. for constipation. 9. Humalog 10 units subcutaneous t.i.d. with meals. 10. Levemir 30 units subcutaneously at bedtime. 11. [place]-3, 1000 mg tablets, 2 tablets b.i.d. 12. Zantac 150 mg 2 tablets daily. 13. Singulair 10 mg daily. 14. Daily multivitamin. 15. Aspirin 81 mg daily. 16. Mobic 15 mg daily. 17. Plavix 75 mg daily. 18. Pantoprazole 40 mg daily. 19. Theophylline 600 mg daily. 20. Flexeril 10 mg at bedtime. 21. Nitroglycerin 0.4 mg sublingual q.5 minutes p.r.n. for chest pain. 22. Oxygen at 2 liters per nasal cannula continuously. DISCHARGE INSTRUCTIONS 1. Patient was instructed to follow a heart-healthy, diabetic diet. 2. She will continue Accu-Cheks a.c. and at bedtime at home. 3. She can increase her activity as tolerated. 4. She will wear her oxygen at all times. FOLLOWUP Patient will follow up with her primary care provider, Dr. Richardson, in approximately two weeks. Time spent on discharge today 32 minutes. Dictated by... Mana Frias M.D. HAVEN/ciara TD: 04/02/2017 14:27 JOB #: [id number] Unit #: [id number] #: [id number] Patient: ORVILLE DUNAWAY DISCHARGE SUMMARY Page 1 of 1 X Mana Frias MD X DISCHARGE SUMMARY
[~2017-03-28 08:35] MED LIST changes: +ACID CONTROL150 MG PO; +ASPIRIN81 M2 PO; +CLOPIDOGREL75 MG PO; +EFFIENT10 MG PO; +HUMALOG100 UNIT/1 SUBQ; +IPRAT-ALBUT 0.5-3 ML INH; +LEVEMIR100 UNITS/ SUBQ; +MELOXICAM15 MG PO; +MIST; +MULTI VITAMIN1 EACH PO; +NITROGLYGERIN0.4 MG SL; +STOOL SOFTENER250 MG PO; +THEO-DUR200 MG PO
[2017-03-28 09:36] LABS: BASOPHIL% 0.5 % (0-2.5); EOSINOPHIL# 0.1 X10e3 (0-0.7); EOSINOPHIL% 1.6 % (0.0-7.0); HEMATOCRIT 42.7 % (35.0-45.0); HEMOGLOBIN 13.9 gm/dL (12.0-16.0); LYMPHOCYTE# 1.3 X10e3 (1.0-3.5); LYMPHOCYTE% 16.4 % (17.0-45.0); MEAN CELL VOLUME 79.6 FL (83-96); MEAN CORPUSCULAR HGB CONC 32.7 g/dL (30-36); MEAN PLATELET VOLUME 10.2 FL (6.5-11.5); MONOCYTE# 0.6 X10e3 (0-1.0); MONOCYTE% 6.8 % (3.0-12.0); NEUTROPHIL% 74.7 % (40-75); PLATELET COUNT 110 X10e3 (140-420); RED BLOOD COUNT 5.36 X10e (3.90-5.30); RED CELL DISTRIBUTION WIDTH 15.7 % (11.0-15.5); WHITE BLOOD COUNT 8.1 X10e3 (4.0-10.5)
[2017-03-28 09:39] LABS: DIFF IND NO
[2017-03-28 09:53] LABS: POC - CKMB 2.6 ng/mL (0.0-7.9); POC - TROPONIN <0.05 ng/mL (<=0.05)
[2017-03-28 10:02] LABS: ALBUMIN SERUM 3.7 g/dL (3.5-5.0); BILIRUBIN, DIRECT 0.1 mg/dL (0.0-0.2); BILIRUBIN,INDIRECT 0.6 mg/dL (0.0-0.9); BILIRUBIN,TOTAL 0.7 mg/dL (0.2-2.0); CALCIUM SERUM 8.9 mg/dL (8.4-10.2); CREATININE SERUM 0.6 mg/dL (0.6-1.4); GLOM FILT RATE Estimated 106.3 mL/min (>60); POTASSIUM 3.7 mmol/L (3.5-5.1); PROTEIN TOTAL SERUM 7.1 g/dL (6.0-8.3)
[2017-03-28 11:27] LABS: POC - CKMB 5.1 ng/mL (0.0-7.9); POC - TROPONIN <0.05 ng/mL (<=0.05)
[2017-03-28] MEDS ORDERED: CLOPIDOGREL75 MG PO (12:28)
[2017-03-28] MEDS ORDERED: MULTIVITAMINS1 EAC3 PO (12:28)
[2017-03-28] MEDS ORDERED: ZANTAC150 M1 PO (12:29)
[2017-03-28] MEDS ORDERED: THEO-DUR300 MG PO (12:29)
[2017-03-28] MEDS ORDERED: PANTOPRAZOLE SO40 MG PO (12:30)
[2017-03-28] MEDS ORDERED: ASPIRIN81 M2 PO (12:30)
[2017-03-28] MEDS ORDERED: MOBIC PO (12:30)
[2017-03-28] MEDS ORDERED: FLEXERIL10 MG PO (12:30)
[2017-03-28] MEDS ORDERED: OMEGA 3 1,0001 EACH PO (12:30)
[2017-03-28] MEDS ORDERED: MONTELUKAST SOD10 MG PO (12:30)
[2017-03-28] MEDS ORDERED: DESYREL50 MG PO (12:31)
[2017-03-28] MEDS ORDERED: LEVEMIR FL100 UNIT/1 SUBQ (12:31)
[2017-03-28] MEDS ORDERED: PRAMIPEXOLE DI0.5 MG PO (12:31)
[2017-03-28] MEDS ORDERED: HUMALOG100 UNIT/1 SUBQ (12:31)
[2017-03-28] MEDS ORDERED: STOOL SOFTENER250 MG PO (12:32)
[2017-03-28] MEDS ORDERED: NITROGLYGERIN0.4 MG PO (12:32)
[2017-03-28] MEDS ORDERED: IPRATR-ALBUTEROL3 ML NEB (12:32)
[2017-03-28] MEDS ORDERED: TYLENOL325 M1 PO (12:33)
[2017-03-28 12:55] LABS: ARTERIAL BLD GAS O2 SATURATION 94.4 % (90.0-100.0); ARTERIAL BLOOD GAS CARBOXY HB 1.8 %sat (0.0-9.0); ARTERIAL BLOOD GAS HCO3 30.1 mmol/L; ARTERIAL BLOOD GAS MET HB 0.1 %sat (0.0-2.0); ARTERIAL BLOOD GAS PCO2 48.8 mmHg (35.0-45.0); ARTERIAL BLOOD GAS pH 7.398 (7.350-7.450)
[2017-03-28 12:56] LABS: ARTERIAL BLOOD GAS ALLEN TEST NORMAL; ARTERIAL BLOOD GAS ART SITE RIGHT RADIAL; ARTERIAL BLOOD GAS DELIVERY NASAL CANNULA; ARTERIAL BLOOD GAS PO2 75.3 mmHg (80.0-100); ARTERIAL DRAW? YES
[2017-03-28 14:43] LABS: URINE SOURCE CLEAN CATCH
[2017-03-28 14:47] LABS: URINE APPEARANCE CLEAR; URINE BILIRUBIN NEG (NEG); URINE BLOOD TRACE (NEG); URINE COLOR YELLOW; URINE GLUCOSE >1000 MG/DL (NEG); URINE KETONE 2+ (NEG); URINE LEUKOCYTE ESTERASE NEG (NEG); URINE NITRATE NEG (NEG); URINE PH 5.5 (5-8); URINE PROTEIN 2+ (NEG); URINE SPECIFIC GRAVITY 1.039 (1.003-1.035); URINE UROBILINOGEN 0.2 MG/DL (NEG)
[2017-03-28 14:48] LABS: URINE BACTERIA AUWI NEG (NEGATIVE); URINE SQUAMOUS EPITHELIAL CELL NONE SEEN /[HPF]; UWBCS1 AUWI 0-2 (0-5)
[2017-03-28 14:51] LABS: CULTURE INDICATED? NO
[2017-03-29 04:43] LABS: HEMATOCRIT 40.1 % (35.0-45.0); HEMOGLOBIN 13.2 gm/dL (12.0-16.0); MEAN CELL VOLUME 78.5 FL (83-96); MEAN CORPUSCULAR HEMOGLOBIN 25.9 PG (28-34); MEAN CORPUSCULAR HGB CONC 32.9 g/dL (30-36); MEAN PLATELET VOLUME 10.4 FL (6.5-11.5); RED BLOOD COUNT 5.11 X10e (3.90-5.30); RED CELL DISTRIBUTION WIDTH 15.8 % (11.0-15.5); WHITE BLOOD COUNT 9.6 X10e3 (4.0-10.5)
[2017-03-29 06:55] LABS: BUN/CREATININE RATIO 36.66; CALCIUM SERUM 9.7 mg/dL (8.4-10.2); CREATININE SERUM 0.6 mg/dL (0.6-1.4); GLOM FILT RATE Estimated 106.3 mL/min (>60); POTASSIUM 4.5 mmol/L (3.5-5.1)
[2017-03-29 11:49] LABS: IRON SERUM 34 ug/dL (28-170); TOTAL IRON BINDING CAPACITY 398 ug/dL (269-535); TRANSFERRIN 284 mg/dL (192-382); TRANSFERRIN SATURATION 9 % (20-50)
[2017-03-30 05:47] LABS: HEMOGLOBIN 12.7 gm/dL (12.0-16.0); MEAN CELL VOLUME 79.5 FL (83-96); MEAN CORPUSCULAR HEMOGLOBIN 25.9 PG (28-34); MEAN CORPUSCULAR HGB CONC 32.6 g/dL (30-36); MEAN PLATELET VOLUME 10.4 FL (6.5-11.5); RED BLOOD COUNT 4.91 X10e (3.90-5.30); RED CELL DISTRIBUTION WIDTH 15.6 % (11.0-15.5)
[2017-03-30 05:57] LABS: WHITE BLOOD COUNT 17.6 X10e3 (4.0-10.5)
[2017-03-30 06:03] LABS: BUN/CREATININE RATIO 41.42; CALCIUM SERUM 9.6 mg/dL (8.4-10.2); CREATININE SERUM 0.7 mg/dL (0.6-1.4); MAGNESIUM 2.1 mg/dL (1.6-3.0); POTASSIUM 4.4 mmol/L (3.5-5.1)
[2017-03-30] MEDS ORDERED: DOXYCYCLINE HY100 M3 PO (11:52)
[2017-03-30] MEDS ORDERED: TRAMADOL HCL50 M1 PO (11:52)
[2017-03-30] MEDS ORDERED: PREDNISONE10 M1 PO (11:53)
== END 2017-03-30 14:44 | disposition home or self-care (01) ==
LOC: CED 08:35 → CEDOF 12:16 → C2A 12:16 → CED 12:55 → CEDOF 12:55 → C2A 17:38 → CEDOF 17:38 → C2A 03-29 07:54
PROVIDERS: Emergency Medicine; Internal Medicine
DX: J44.1 Chronic obstructive pulmonary disease with (acute) exacerbation (principal); J96.11 Chronic respiratory failure with hypoxia; Z99.81 Dependence on supplemental oxygen; E11.65 Type 2 diabetes mellitus with hyperglycemia; T38.0X5A Adverse effect of glucocorticoids and synthetic analogues, initial encounter; D72.829 Elevated white blood cell count, unspecified; Z79.4 Long term (current) use of insulin; F41.9 Anxiety disorder, unspecified; D68.0 Von Willebrand disease; I25.10 Atherosclerotic heart disease of native coronary artery without angina pectoris; G25.81 Restless legs syndrome; I10 Essential (primary) hypertension; F17.200 Nicotine dependence, unspecified, uncomplicated; R10.9 Unspecified abdominal pain; K21.9 Gastro-esophageal reflux disease without esophagitis; Z79.899 Other long term (current) drug therapy; Z79.01 Long term (current) use of anticoagulants; Z79.82 Long term (current) use of aspirin; Z83.6 Family history of other diseases of the respiratory system; Z90.49 Acquired absence of other specified parts of digestive tract; Z98.51 Tubal ligation status; Z88.8 Allergy status to other drugs, medicaments and biological substances
CPT/HCPCS: 36415; 36600; 71010; 80048; 80076; 81003; 82553; 82803; 82947; 83540; 83550; 83605; 83735; 83880; 84100; 84484; 85025; 85027; 87040; 93005; 94640; 94760; 96365; 96375; 99285; G0378; J1040; J1650; J1815; J2270; J2405; J2930; J3475

== ENCOUNTER 2017-05-27 13:04 | Inpatient (IN) | payer OTHER ==
[~2017-05-27] VITALS: Ht 167.6 cm; Wt 67.6 kg
--- NOTE | ~2017-05-27 | CR72 ---
[facility] A Service of [facility] & [facility] RADIOLOGY TEXT RESULTS PATIENT: ORVILLE SOLANO LOCATION: [facility] 570-01 : [birth year] UNIT #: [id number] AGE: [address]: Mana Frias MD SEX: F ORDER DR: [id number] [facility] [address] [place], [place] [address] [id number] I MR#: [id number] Acc #: [id number] NAME: ORVILLE SOLANO : 1965 SEX: F STUDY DATE/TIME: 05/28/2017 6:15 UNIT: [facility] ROOM: [facility] STUDY DESCRIPTION: CR Chest Single View Portable Attending Physician: Mana Frias M.D. Ordering Physician: Wong Barreto Primary Care Physician: Artemio Richardson M.D. MEDICAL IMAGING REPORT This report is preliminary unless electronic signature is present EXAM Frontal chest 05/28/2017 INDICATIONS Congestion, shortness of air symptoms for 2 days. Hypertension, diabetes, COPD COMPARISON Frontal chest was performed compared with 05/27/2017 FINDINGS Cardiac silhouette is within normal limits. The vascularity is unremarkable. The lungs are hyperinflated and suggest sequela of underlying emphysema. There is old healed granulomatous disease. No effusion or dense consolidation. Infrahilar opacities bilaterally appear more prominent but primarily appear to be related to the pulmonary vessels rather than faint areas of developing atelectasis or infiltrate. There is no dense consolidation or effusion and no pneumothorax is identified. IMPRESSION 1. Background changes of COPD and old healed granulomatous disease. No dense consolidation, effusion or pneumothorax. 2. Increasing prominence of what appears to be the pulmonary vasculature in the lower lung zones. This may be technical in nature. Faint areas of atelectasis or developing infiltrates felt to be less likely but should be correlated clinically. Dictated by... Efrain Aviles M.D. THIS IS AN ELECTRONICALLY VERIFIED REPORT Efrain Aviles M.D. at 05/28/2017 2:29 PM PAXTON/rena ST[facility]. [facility] A Service of [facility] & [facility] RADIOLOGY TEXT RESULTS PATIENT: ORVILLE SOLANO LOCATION: [facility] 570-01 : [birth year] UNIT #: [id number] AGE: [address]: Mana Frias MD SEX: F ORDER DR: TD: 05/28/2017 12:35 JOB #: [id number] MEDICAL IMAGING REPORT Page 1 of 1 COPY
--- NOTE | ~2017-05-27 | HP ---
Unit #: [id number] #: [id number] Patient: ORVILLE SOLANO [id number] [address] [place], [place] [address] [id number] I MR#: [id number] NAME: ORVILLE SOLANO. ROOM: 03458 Age: 52 Sex: F Admission Date: 05/27/2017 : 1965 Attending Physician: Oksana Tyler M.D. Primary Care Physician: Artemio Richardson M.D. HISTORY AND PHYSICAL CHIEF COMPLAINT Short of air. HISTORY OF PRESENT ILLNESS The patient is a 52-year-old female with a past medical history of COPD, chronic respiratory failure, coronary artery disease, diabetes, anxiety, von Willebrand disease, GERD, who presented to the emergency department for evaluation of the above. The patient states that she has had worsening shortness of breath within the past 24 hours. She states that she has had productive cough. She apparently saw her primary care physician last week. She initially called the primary care physician on May 20, 2017, and was given a prescription for antibiotics and steroids which she took as prescribed. She then saw the primary care physician in the office on May 24, 2017, and was started on Levaquin which she has not yet filled. She also was started on a cough syrup. She states that the symptoms have persisted. In the emergency department, chest x-ray showed nothing acute. Oxygen saturation was 98% on five liters. She was given normal saline 30 mL/kg, as well as vancomycin, tobramycin, and Zosyn. She is being admitted to [facility] for evaluation and further treatment. PAST MEDICAL HISTORY 1. Admission to [facility] March 28-2016, for COPD exacerbation. 2. COPD, severe. The patient sees Dr. Rizvi as an outpatient. 3. Chronic respiratory failure on two liters of oxygen per nasal cannula. 4. Diabetes. 5. Coronary artery disease, status post stent placement, followed by Dr. Franco. 6. Chronic neck and back pain, not in pain management. 7. GERD. 8. Anxiety. 9. Von Willebrand disease. PAST SURGICAL HISTORY 1. Cardiac catheterization. 2. Cardiac stent placement. 3. EGD and colonoscopy. 4. Cholecystectomy. 5. Bilateral tubal ligation. 6. section. Unit #: [id number] #: [id number] Patient: ORVILLE SOLANO SOCIAL HISTORY The patient continues to smoke a pack of cigarettes daily. She denies alcohol use. Her code status is a Full Code. FAMILY HISTORY COPD. ALLERGIES Guaifenesin. HOME MEDICATIONS 1. Atrovent 2 puffs 4 times daily. 2. Prednisone. 3. Symbicort 160/4.5 at 2 puffs inhaled twice daily. 4. Ventolin 2 puffs inhaled q.4 hours p.r.n. 5. Levaquin 500 mg daily. 6. [place]-3 at 2000 mg twice daily. 7. Mirapex 0.5 mg at bedtime. 8. Zantac 150 mg twice daily. 9. Aspirin 81 mg daily. 10. Magnesium 400 mg daily. 11. Theophylline 300 mg q.12 hours. 12. Levemir 30 units at bedtime. 13. Plavix 75 mg daily. 14. Mobic 15 mg daily. 15. Trazodone 50 mg at bedtime. 16. Flexeril 10 mg at bedtime. REVIEW OF SYSTEMS A complete review of systems is negative except as indicated in the HPI. PHYSICAL EXAMINATION VITAL SIGNS: Temperature is 99.8, pulse 98, respirations 22, blood pressure 112/72, oxygen saturation 98% on 5 liters. GENERAL: The patient is a female who is awake, alert, and in no acute distress, eating crackers. HEENT: Head is atraumatic. Mucous membranes are moist. NECK: Supple. Trachea is midline. CARDIOVASCULAR: Regular rate and rhythm. LUNGS: Inspiratory and expiratory wheezes. Breathing is not labored with conversation. ABDOMEN: Soft and nontender with bowel sounds present in all four quadrants. EXTREMITIES: Nontender with no pedal edema. NEUROLOGIC: The patient is awake and alert. She follows commands. PSYCHIATRIC: Mood and affect are normal. Patient is cooperative. SKIN: Skin of examined areas is warm and dry. DIAGNOSTIC STUDIES LABORATORY: Arterial blood gas shows a pH of 7.383, PCO2 of 55.5, and PO2 of 70.1 on 2 liters. Complete blood count is essentially normal. Troponin is less than 0.05. Lactic acid is 2.3. Comprehensive metabolic panel notable for a chloride of 98, glucose 306, alkaline phosphatase is 105. BNP is 32. INR is 0.9. IMAGING: Chest x-ray shows no acute abnormality. CARDIOLOGY: EKG shows normal sinus rhythm with a rate of 98 beats per Unit #: [id number] #: [id number] Patient: ORVILLE SOLANO minute. ASSESSMENT The patient is a 52-year-old female with: 1. Sepsis with initial lactic acid of 2.3. 2. Pneumonia, clinical, that has failed outpatient treatment with unknown antibiotic. The patient was given Levaquin last week but did not get the prescription filled. She did however, take an unknown antibiotic that was called in earlier that week. She received vancomycin, tobramycin, and Zosyn in the emergency department. 3. Chronic obstructive pulmonary disease exacerbation with continued tobacco abuse. 4. Chronic respiratory failure, hypoxic and hypercapnic, on two liters of oxygen per nasal cannula. 5. Coronary artery disease, status post cardiac stent placement, followed by Dr. Franco. 6. Diabetes, uncontrolled, with glucose of 306 in the emergency department. 7. Anxiety. 8. Von Willebrand disease. 9. Gastroesophageal reflux disease. PLAN 1. Admit to intermediate level. 2. Healthy heart, consistent carbohydrate diet. 3. Sepsis protocol. 4. Blood cultures x2. 5. Sputum culture and sensitivity. 6. Supplemental oxygen. 7. Procalcitonin level. 8. Vancomycin IV, tobramycin IV, and Zosyn IV pending further workup. 9. Solu-Medrol 80 mg IV q.12 hours. 10. DuoNebs q.[address] 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 12. Serial cardiac enzymes. 13. Check theophylline. 14. Hemoglobin A1c. 15. Low-dose sliding scale insulin with Accu-Cheks. 16. Repeat labs in the morning. 17. SCDs for DVT prophylaxis. 18. Additional workup and consultants based on above. 19. Regarding code status, the patient is a Full Code. 1. Dictated by Francesca Harley/ciara TD: 05/27/2017 17:57 JOB #: [id number] Unit #: [id number] #: [id number] Patient: ORVILLE SOLANO HISTORY AND PHYSICAL Page 1 of 1 X Oksana Tyler MD HISTORY AND PHYSICAL
--- NOTE | ~2017-05-27 | EKG ---
PATIENT: ORVILLE SOLANO UNIT #: [id number] Ventricular Rate: 98 BPM Atrial Rate: 98 BPM P-R Interval: 118 ms QRS Duration: 70 ms Q-T Interval: 326 ms QTC Calculation(Bezet): 416 ms P Gilbert: 66 degrees Calculated R Gilbert: 40 degrees Calculated T Gilbert: 43 degrees Diagnosis Line: Normal sinus rhythm Diagnosis Line: Normal ECG Diagnosis Line: When compared with ECG of 28-MAR-2017 09:34, Diagnosis Line: No significant change was found Diagnosis Line: Confirmed by ALL NOVAK MD ([id number]) on Diagnosis Line: 05/27/2017 2:27:44 PM INTERPRETING MD: KISHORE GILMAN
--- NOTE | ~2017-05-27 | CO ---
Unit #: [id number] #: [id number] Patient: ORVILLE SOLANO [id number] [address] [place], [place] [address] [id number] I MR#: [id number] NAME: ORVILLE SOLANO ROOM: 222 Age: 52 Sex: F Admission Date: 05/27/2017 : 1965 Attending Physician: Mana Frias M.D. Primary Care Physician: Artemio Richardson M.D. Consultation Date: 05/27/2017 CONSULTATION REPORT HISTORY OF PRESENT ILLNESS This is a 52-year-old lady with a history of COPD, coronary artery disease, diabetes mellitus, anxiety, and GERD, who presents with approximately 24 hours of productive cough. The patient took antibiotics last week for worsening shortness of breath, she wa on clindamycin or Adriamycin, the patient was unsure. However, in the past 24 hours, shortness of breath has become significantly more progressive. Procalcitonin is 0.05. The patient has a history of chest pain. She has been stented. She is followed by Dr. Franco, and this appears to have been stable. In the emergency department, the patient showed no acute infiltrate. The patient was saturating 98% on 5 L. The patient was given normal saline as well as vancomycin, tobramycin, and Zosyn, being admitted for possible SIRS, hospital evaluation, and further treatment. PAST MEDICAL HISTORY Significant for previous admission from 03/28/2017 to 03/30/2017 for COPD exacerbation, history of severe COPD. The patient sees Dr. Rizvi as an outpatient, chronic respiratory failure on 2 L oxygen per nasal cannula, history of diabetes, history of coronary artery disease, status post stents, chronic GERD, chronic neck and back pain, chronic anxiety, history of von Willebrand disease. PAST SURGICAL HISTORY Significant for , bilateral tubal ligation, cholecystectomy, EGD, colonoscopy, cardiac stent placement, cardiac catheterization. SOCIAL HISTORY The patient continues to smoke a pack of cigarettes a day. Denies alcohol use. She is full code. FAMILY HISTORY Positive for COPD. ALLERGIES The patient is allergic to Mucinex. HOME MEDICATIONS Include Atrovent 2 puffs q.i.d., Prednisone, Symbicort 160/4.5 two puffs inhaled b.i.d., Ventolin 2 puffs inhaled q.4 hours p.r.n., Levaquin 500 mg daily, omega-3 of 2000 mg b.i.d., Mirapex 0.5 mg at bedtime, Zantac 150 mg daily, aspirin 81 mg daily, magnesium 400 mg daily, theophylline 300 mg q.12 hours, Levemir 30 units at bedtime, Plavix 75 mg daily, Mobic 15 mg daily, trazodone 50 mg at bedtime, Flexeril 10 mg at bedtime. Unit #: [id number] #: [id number] Patient: ORVILLE SOLANO REVIEW OF SYSTEMS Negative except as per noted in the history of present illness. PHYSICAL EXAMINATION GENERAL: The patient is awake, alert, no acute distress. VITAL SIGNS: Temperature 99.8, pulse 98, respiratory rate 22, blood pressure 112/72, oxygen saturation is 98% on 5 L nasal cannula. HEENT: Pupils are equal, round, and reactive to light. Head is normocephalic, atraumatic. NECK: Supple, trachea is midline. CARDIOVASCULAR: Regular rate and rhythm. LUNGS: Show inspiratory and expiratory wheezes. The patient is not labored. ABDOMEN: Soft, nontender, and nondistended. Bowel sounds present in all 4 quadrants. EXTREMITIES: Show no significant edema. There is no cyanosis and no clubbing. SKIN: The patient shows no rashes present. DIAGNOSTIC STUDIES LABORATORY RESULTS: Blood gas 7.383, pCO2 of 55.5, pO2 of 70.1. Lactic acid is 2.3. Comprehensive metabolic panel significant for alkaline phosphate of 105, BNP is 32, INR 0.9. IMAGING STUDIES: Chest x-ray is normal. EKG shows normal sinus rhythm, 98 beats per minute. ASSESSMENT AND PLAN 1. Probable healthcare acquired pneumonia/bronchitis. The patient is on vancomycin, tobramycin, Zosyn. Continue treatment with broad-spectrum antibiotics for approximately 3 days. 2. Acute on chronic respiratory failure. This is probably due to a combination of acute bronchitis and chronic obstructive pulmonary disease. The patient is on nebs, supplementary oxygen. 3. Diabetes mellitus, poorly controlled. We are going to do a short burst of steroids and wean them down as quickly as possible. We are going to await sputum cultures. The patient hopefully will be able to produce expectorate, if not, we can do 3% saline to help with expectoration. Thank you very much for consulting and allowing us to participate in the care of this patient. Please page me at [phone] if you have any questions. Dictated by... Francesca Alvarado/jesusita TD: 05/29/2017 02:33 JOB #: [id number] Unit #: [id number] #: [id number] Patient: ORVILLE SOLANO CONSULTATION REPORT Page 1 of 1 X Wong Barreto MD CONSULTATION REPORT
--- NOTE | ~2017-05-27 | CR72 ---
[facility] A Service of [facility] & [facility] RADIOLOGY TEXT RESULTS PATIENT: ORVILLE SOLANO LOCATION: [facility] 570-01 : [birth year] UNIT #: [id number] AGE: [address]: Mana Frias MD SEX: F ORDER DR: [id number] [facility] [address] [facility] [place], [place] [address] [id number] I MR#: [id number] Acc #: [id number] NAME: ORVILLE SOLANO : 1965 SEX: F STUDY DATE/TIME: 05/27/2017 13:28 UNIT: [facility] ROOM: [facility] STUDY DESCRIPTION: CR Chest Single View Portable Attending Physician: Mana Frias M.D. Ordering Physician: Leona Acevedo M.D. Primary Care Physician: Artemio Richardson M.D. MEDICAL IMAGING REPORT This report is preliminary unless electronic signature is present EXAM Portable chest x-ray 05/27/2017 HISTORY Short of air today. FINDINGS AP radiograph of the chest is presented. There is no acute-appearing bony abnormality. The heart is normal in size. There is evidence of prior coronary artery stenting. The lungs are slightly hyperinflated. No change from prior study. Correlate with any known underlying chronic airway disease. There is no evidence of acute pulmonary disease. No pleural effusion or pneumothorax and no suspicious nodule. Dictated by... Chuck Mitchell M.D. THIS IS AN ELECTRONICALLY VERIFIED REPORT Chuck Mitchell M.D. at 05/28/2017 4:57 PM SARA/aroldo TD: 05/28/2017 09:16 JOB #: [id number] MEDICAL IMAGING REPORT Page 1 of 1 COPY
--- NOTE | ~2017-05-27 | DS ---
Unit #: [id number] #: [id number] Patient: ORVILLE DUNAWAY [id number] [address] [address] [id number] MR#: [id number] NAME: ORVILLE DUNAWAY ROOM: 222 Age: 52 Sex: F Admission Date: 05/27/2017 : 1965 Discharge Date: 05/30/2017 Attending Physician: Mana Frias M.D. Primary Care Physician: Artemio Richardson M.D. DISCHARGE SUMMARY PRINCIPAL DIAGNOSES 1. Acute on chronic hypercapnic, hypoxic respiratory failure, now returned to baseline two to three liters of oxygen per nasal cannula continuously. 2. Acute exacerbation of chronic obstructive pulmonary disease. 3. Acute bronchitis. 4. Diabetes mellitus type 2, insulin requiring and uncontrolled with hemoglobin A1c of 10.2. 5. Steroid-induced leukocytosis. 6. Steroid-induced hyperglycemia. 7. Coronary artery disease. 8. Von Willebrand disease. 9. Anxiety. 10. Tobaccoism. 11. Mild protein malnutrition. 12. Overweight. 13. Gastroesophageal reflux disease. 14. Chronic neck and back pain. [employer] Dr. Barreto, Pulmonology. PROCEDURES 1. Chest x-ray on May 27, 2017, with hyperinflation of the lungs and no other acute findings. 2. Chest x-ray on May 28, 2017, again, with healed granulomatous disease and pulmonary hyperinflation. CLINICAL HISTORY AND HOSPITAL COURSE Ms. Dunaway is a nice 52-year-old female with a history of chronic respiratory failure and severe COPD who presented to the emergency department with shortness of air. Patient received treatment on an outpatient basis but continued to have worsening cough and shortness of breath. She was mildly hypoxic in the emergency department. Patient was given broad spectrum antibiotics given recent hospitalization in March, in addition to failure of outpatient treatment, and was subsequently admitted. Patient again was placed on IV antibiotics but remained afebrile and had only essentially steroid-induced leukocytosis. Procalcitonin was completely normal, and antibiotics were rapidly deescalated. Sputum of note was ultimately normal gianfranco. Patient had an associated COPD exacerbation and was placed on IV steroids. Fortunately, she improved rather quickly, and these have been deescalated. Unit #: [id number] #: [id number] Patient: ORVILLE DUNAWAY Oxygen saturations returned to her baseline the morning following admission and have remained normal. She is having minimal dyspnea upon exertion. Will provide a tapering dose of steroids on an outpatient basis as noted. The patient did have some significant hyperglycemia particularly with steroid dosing. Sugar has been going to the high 200s to 300s. There was an occasional 400. Her sugars at baseline are poorly controlled with her A1c of 10.2. 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 Patient's other chronic issues have remained stable, and she will be discharged home later today. DISCHARGE CONDITION Stable. DISCHARGE STATUS Discharge to home. DISCHARGE MEDICATIONS 1. Ventolin inhaler 2 puffs every 4 hours p.r.n. for shortness of breath. 2. Combivent nebulizer treatments 3 mL every 6 hours p.r.n. for shortness of air. 3. Symbicort 160/4.5 mcg 2 puffs b.i.d. 4. Atrovent 2 puffs 4 times daily. 5. Prednisone 10 mg tablets, 4 tablets p.o. twice daily for 1 day, 6 tablets daily for 1 day, 5 tablets daily for 1 day, 4 tablets daily for 1 day, 3 tablets daily for 1 day, 2 tablets daily for 1 day, 1 tablet daily for 1 day. 6. Magnesium oxide 400 mg p.o. daily. 7. Trazodone 50 mg at bedtime. 8. Mirapex 0.5 mg at bedtime. 9. Colace 100 mg p.o. daily p.r.n. for constipation. 10. Humalog 10 units subcutaneous t.i.d. with meals. 11. Levemir 30 units subcutaneously b.i.d. 12. Fish oil 2000 mg twice daily. 13. Zantac 150 mg b.i.d. 14. Singulair 10 mg daily. 15. Daily multivitamin. 16. Aspirin 81 mg daily. 17. Mobic 15 mg daily. 18. Plavix 75 mg daily. 19. Theophylline 300 mg b.i.d. 20. Flexeril 10 mg at bedtime. 21. Doxycycline 100 mg twice daily for 4 days. 22. Vitamin D2 at 50,000 units weekly. DISCHARGE INSTRUCTIONS 1. Patient is instructed to follow a constant carbohydrate, heart-health diet. 2. She is to continue Accu-Cheks a.c. and at bedtime at home. 3. She can increase her activity as tolerated. 4. She is to wear her oxygen at all times at two liters. 5. She is to refrain from any further tobacco use. FOLLOWUP Patient will follow up with Dr. Barreto and/or Dr. Rizvi in four Unit #: [id number] #: [id number] Patient: XIOMARAORVILLELUDA fiore. She can follow up with her primary care provider, Dr. Richardson, at that time as well. Dictated by... Mana Frias M.D. HAVEN/ciara TD: 06/02/2017 17:35 JOB #: [id number] DISCHARGE SUMMARY Page 1 of 1 X Mana Frias MD X DISCHARGE SUMMARY
[~2017-05-27 13:04] MED LIST changes: +DOXYCYCLINE HY100 M3 PO; +IPRATR-ALBUTEROL3 ML NEB; +LEVEMIR FL100 UNIT/1 SUBQ; +MOBIC PO; +MULTIVITAMINS1 EAC3 PO; +NITROGLYGERIN0.4 MG PO; +OMEGA 3 1,0001 EACH PO; +PREDNISONE10 M1 PO; +TRAMADOL HCL50 M1 PO; +TYLENOL325 M1 PO
[2017-05-27 13:25] LABS: ARTERIAL BLD GAS O2 SATURATION 89.8 % (90.0-100.0); ARTERIAL BLOOD GAS CARBOXY HB 3.3 %sat (0.0-9.0); ARTERIAL BLOOD GAS MET HB 0.6 %sat (0.0-2.0); ARTERIAL BLOOD GAS pH 7.383 (7.350-7.450)
[2017-05-27 13:26] LABS: ARTERIAL BLOOD GAS ALLEN TEST NORMAL; ARTERIAL BLOOD GAS ART SITE RIGHT RADIAL; ARTERIAL BLOOD GAS DELIVERY NASAL CANNULA; ARTERIAL BLOOD GAS PCO2 55.5 mmHg (35.0-45.0); ARTERIAL BLOOD GAS PO2 70.1 mmHg (80.0-100); ARTERIAL DRAW? YES
[2017-05-27 13:56] LABS: BASOPHIL% 0.3 % (0-2.5); EOSINOPHIL# 0.1 X10e3 (0-0.7); EOSINOPHIL% 1.5 % (0.0-7.0); HEMATOCRIT 39.9 % (35.0-45.0); HEMOGLOBIN 13.2 gm/dL (12.0-16.0); LYMPHOCYTE# 1.4 X10e3 (1.0-3.5); LYMPHOCYTE% 16.4 % (17.0-45.0); MEAN CELL VOLUME 81.1 FL (83-96); MEAN CORPUSCULAR HEMOGLOBIN 26.8 PG (28-34); MEAN CORPUSCULAR HGB CONC 33.1 g/dL (30-36); MONOCYTE# 0.5 X10e3 (0-1.0); MONOCYTE% 6.1 % (3.0-12.0); NEUTROPHIL# 6.5 X10e3 (1.5-7.1); NEUTROPHIL% 75.7 % (40-75); PLATELET COUNT 145 X10e3 (140-420); RED BLOOD COUNT 4.92 X10e (3.90-5.30); WHITE BLOOD COUNT 8.6 X10e3 (4.0-10.5)
[2017-05-27 13:59] LABS: DIFF IND NO
[2017-05-27 14:08] LABS: POC - CKMB 1.4 ng/mL (0.0-7.9); POC - TROPONIN <0.05 ng/mL (<=0.05)
[2017-05-27 14:19] LABS: ALBUMIN SERUM 3.5 g/dL (3.5-5.0); BILIRUBIN, DIRECT 0.1 mg/dL (0.0-0.2); BILIRUBIN,INDIRECT 0.3 mg/dL (0.0-0.9); BILIRUBIN,TOTAL 0.4 mg/dL (0.2-2.0); BUN/CREATININE RATIO 16.66; CALCIUM SERUM 8.4 mg/dL (8.4-10.2); CREATININE SERUM 0.6 mg/dL (0.6-1.4); GLOM FILT RATE Estimated 106.3 mL/min (>60); POTASSIUM 3.9 mmol/L (3.5-5.1); PROTEIN TOTAL SERUM 6.3 g/dL (6.0-8.3)
[2017-05-27 15:04] LABS: INR 0.9; PROTHROMBIN TIME (PATIENT) 9.8 SECONDS (10.0-11.7)
[2017-05-27] MEDS ORDERED: ATROVENT HFA12.9 G1 INH (15:35)
[2017-05-27] MEDS ORDERED: SYMBICORT INH (15:36)
[2017-05-27] MEDS ORDERED: ALBUTEROL17 GM INH (15:36)
[2017-05-27] MEDS ORDERED: PREDNISONE10 M1 PO (15:36)
[2017-05-27] MEDS ORDERED: LEVAQUIN PO (15:36)
[2017-05-27] MEDS ORDERED: SINGULAIR PO (15:38)
[2017-05-27] MEDS ORDERED: MULTIVITAMINS1 EAC3 PO (15:38)
[2017-05-27] MEDS ORDERED: OMEGA 3 1,0001 EACH PO (15:38)
[2017-05-27] MEDS ORDERED: SODIUM CHLORI1000 M1 (15:38)
[2017-05-27] MEDS ORDERED: VITAMIN D250000 UNIT PO (15:38)
[2017-05-27] MEDS ORDERED: HUMALOG100 UNIT/1 SUBQ (15:38)
[2017-05-27] MEDS ORDERED: LIPITOR20 MG PO (15:39)
[2017-05-27] MEDS ORDERED: MIRAPEX PO (15:39)
[2017-05-27] MEDS ORDERED: ZANTAC150 M1 PO (15:39)
[2017-05-27] MEDS ORDERED: ASPIRIN81 M2 PO (15:39)
[2017-05-27] MEDS ORDERED: THEO-DUR300 MG PO (15:40)
[2017-05-27] MEDS ORDERED: LEVEMIR100 UNITS/ SUBQ (15:40)
[2017-05-27] MEDS ORDERED: MOBIC PO (15:40)
[2017-05-27] MEDS ORDERED: CLOPIDOGREL75 MG PO (15:40)
[2017-05-27] MEDS ORDERED: MAG-OX 400400 M1 PO (15:40)
[2017-05-27] MEDS ORDERED: FLEXERIL10 MG PO (15:45)
[2017-05-27] MEDS ORDERED: DESYREL50 MG PO (15:45)
[2017-05-27 16:00] LABS: POC - CKMB 1.2 ng/mL (0.0-7.9); POC - TROPONIN <0.05 ng/mL (<=0.05)
[2017-05-27] MEDS ORDERED: ACETAMINOPHEN PO (21:31)
[2017-05-27] MEDS ORDERED: DOCUSATE SODIU100 MG PO (21:32)
[2017-05-27 21:58] LABS: CK TOTAL 40 IU/L (26-140)
[2017-05-28 03:31] LABS: BASOPHIL% 0.1 % (0-2.5); HEMATOCRIT 38.4 % (35.0-45.0); HEMOGLOBIN 12.4 gm/dL (12.0-16.0); LYMPHOCYTE# 0.7 X10e3 (1.0-3.5); LYMPHOCYTE% 5.7 % (17.0-45.0); MEAN CELL VOLUME 80.3 FL (83-96); MEAN CORPUSCULAR HEMOGLOBIN 25.9 PG (28-34); MEAN CORPUSCULAR HGB CONC 32.3 g/dL (30-36); MEAN PLATELET VOLUME 10.1 FL (6.5-11.5); MONOCYTE# 0.4 X10e3 (0-1.0); MONOCYTE% 3.3 % (3.0-12.0); NEUTROPHIL# 10.7 X10e3 (1.5-7.1); NEUTROPHIL% 90.9 % (40-75); PLATELET COUNT 164 X10e3 (140-420); RED BLOOD COUNT 4.79 X10e (3.90-5.30); RED CELL DISTRIBUTION WIDTH 14.6 % (11.0-15.5); WHITE BLOOD COUNT 11.7 X10e3 (4.0-10.5)
[2017-05-28 03:33] LABS: DIFF IND NO
[2017-05-28 03:55] LABS: ALBUMIN SERUM 3.5 g/dL (3.5-5.0); BILIRUBIN,TOTAL 0.4 mg/dL (0.2-2.0); CALCIUM SERUM 8.7 mg/dL (8.4-10.2); CREATININE SERUM 0.6 mg/dL (0.6-1.4); GLOM FILT RATE Estimated 106.3 mL/min (>60); POTASSIUM 3.9 mmol/L (3.5-5.1); PROTEIN TOTAL SERUM 6.4 g/dL (6.0-8.3)
[2017-05-29 04:23] LABS: BUN/CREATININE RATIO 28.57; CALCIUM SERUM 9.1 mg/dL (8.4-10.2); CREATININE SERUM 0.7 mg/dL (0.6-1.4); POTASSIUM 4.3 mmol/L (3.5-5.1)
[2017-05-29 06:11] LABS: BASOPHIL% 0.4 % (0-2.5); HEMATOCRIT 36.7 % (35.0-45.0); HEMOGLOBIN 11.7 gm/dL (12.0-16.0); LYMPHOCYTE# 1.1 X10e3 (1.0-3.5); LYMPHOCYTE% 8.1 % (17.0-45.0); MEAN CELL VOLUME 81.1 FL (83-96); MEAN CORPUSCULAR HEMOGLOBIN 25.9 PG (28-34); MEAN CORPUSCULAR HGB CONC 31.9 g/dL (30-36); MEAN PLATELET VOLUME 10.5 FL (6.5-11.5); MONOCYTE# 0.5 X10e3 (0-1.0); MONOCYTE% 3.8 % (3.0-12.0); NEUTROPHIL# 11.4 X10e3 (1.5-7.1); NEUTROPHIL% 87.7 % (40-75); PLATELET COUNT 152 X10e3 (140-420); RED BLOOD COUNT 4.52 X10e (3.90-5.30); RED CELL DISTRIBUTION WIDTH 15.1 % (11.0-15.5)
[2017-05-29 06:34] LABS: ALBUMIN SERUM 3.1 g/dL (3.5-5.0); BILIRUBIN,TOTAL 0.4 mg/dL (0.2-2.0); BUN/CREATININE RATIO 31.66; CALCIUM SERUM 9.3 mg/dL (8.4-10.2); CREATININE SERUM 0.6 mg/dL (0.6-1.4); GLOM FILT RATE Estimated 106.3 mL/min (>60); POTASSIUM 4.4 mmol/L (3.5-5.1); PROTEIN TOTAL SERUM 5.5 g/dL (6.0-8.3)
[2017-05-29 06:55] LABS: DIFF IND NO
[2017-05-30 07:04] LABS: CALCIUM SERUM 9.1 mg/dL (8.4-10.2); CREATININE SERUM 0.5 mg/dL (0.6-1.4); GLOM FILT RATE Estimated 112.9 mL/min (>60)
[2017-05-30] MEDS ORDERED: DOXYCYCLINE PO (10:16)
== END 2017-05-30 13:26 | disposition home or self-care (01) | DRG 871 ==
LOC: CED 13:04 → CEDOF 16:55 → C2A 16:55 → CEDOF 17:27 → CED 17:27 → C5C 20:25 → CEDOF 20:25 → C5C 05-28 07:30 → C2A 05-29 09:19
PROVIDERS: Emergency Medicine; Family Medicine; Internal Medicine; Internal Medicine Pulmonary Disease
DX: A41.9 Sepsis, unspecified organism (principal); J18.9 Pneumonia, unspecified organism; J96.21 Acute and chronic respiratory failure with hypoxia; J96.22 Acute and chronic respiratory failure with hypercapnia; D68.0 Von Willebrand disease; J44.0 Chronic obstructive pulmonary disease with (acute) lower respiratory infection; J44.1 Chronic obstructive pulmonary disease with (acute) exacerbation; E44.1 Mild protein-calorie malnutrition; Z99.81 Dependence on supplemental oxygen; E11.65 Type 2 diabetes mellitus with hyperglycemia; F41.9 Anxiety disorder, unspecified; K21.9 Gastro-esophageal reflux disease without esophagitis; Z98.51 Tubal ligation status; Z90.49 Acquired absence of other specified parts of digestive tract; F17.210 Nicotine dependence, cigarettes, uncomplicated; J20.9 Acute bronchitis, unspecified; E66.3 Overweight; D72.829 Elevated white blood cell count, unspecified; T38.0X5A Adverse effect of glucocorticoids and synthetic analogues, initial encounter; Z79.4 Long term (current) use of insulin; I25.10 Atherosclerotic heart disease of native coronary artery without angina pectoris; M54.2 Cervicalgia; G89.29 Other chronic pain; Z68.22 Body mass index [BMI] 22.0-22.9, adult
CPT/HCPCS: 36415; 36600; 71010; 80048; 80053; 80076; 80198; 80200; 80202; 82308; 82550; 82553; 82803; 82947; 83036; 83605; 83735; 83880; 84484; 85025; 85610; 85730; 87040; 87070; 87205; 93005; 94640; 94664; 94760; 96365; 99285; J0696; J1815; J2543; J2930; J3260; J3370